=== PATIENT | male | born 1955 | race Two or more races ===

== ENCOUNTER 2020-08-21 19:55 | Inpatient (IN) | payer MEDICARE, OTHER ==
[~2020-08-21] VITALS: Ht 172.7 cm; Wt 95.7 kg
[2020-08-21] MEDS ORDERED: ACETAMINOPHEN ES 500 MG TABLET ONE (20:08)
--- NOTE | 2020-08-21 20:12 | NUR ---
NURSING PROGRAM DIRECTOR AT BEDSIDE FOR BLOOD DRAW.
[2020-08-21 20:23] LABS: BASOPHILS # (AUTO) 0.1 K/uL (0.0-0.2); BASOPHILS % (AUTO) 0.8 % (0.0-2.0); EOSINOPHILS % (AUTO) 3.2 % (0.0-6.0); HEMATOCRIT 26 % (39-51); HEMOGLOBIN 7.8 g/dL (13.5-17.5); LYMPHOCYTES # (AUTO) 1.5 K/uL (0.8-4.8); LYMPHOCYTES % (AUTO) 24.7 % (20.0-44.0); MEAN CORPUSCULAR HGB CONC 31 g/dl (31.0-36.0); MEAN CORPUSCULAR VOLUME 64 fL (80-96); MONOCYTES # (AUTO) 0.5 K/uL (0.1-1.30); MONOCYTES % (AUTO) 8.3 % (2.0-12.0); NEUTROPHILS # (AUTO) 3.8 K/uL (1.8-8.9); PLATELET COUNT (AUTO) 193 K/uL (150-450); RED BLOOD CELL COUNT(AUTO) 4.02 MIL/uL (4.5-6.0); WHITE BLOOD COUNT (AUTO) 6.1 K/uL (4.3-11.0)
[2020-08-21] MEDS ORDERED: ACETAMINOPHEN ES 500 MG TABLET PO ONE (20:30)
[2020-08-21] MEDS ORDERED: IV NS 0.9% 1,000 ML BAG IV ONE (20:30)
[2020-08-21 20:34] LABS: CALCIUM, SERUM 8.5 mg/dL (8.5-10.1); CREATININE 0.9 mg/dL (0.6-1.3); POTASSIUM 3.1 mmol/L (3.5-5.1)
--- NOTE | 2020-08-21 20:39 | NUR ---
BIBRA C/O LEFT SIDED HEADACHE SINCE 1x HR ASSOCIATE PROFESSOR OF MEDIA ARTS. DENIES VISION CHANGES. PT AAOX4, VSS. RR EVEN & UNLABORED. DENIES CP, SOB, DIZZINESS, N/V, WEAKNESS AT THIS TIME. PT SEEN & EVAL'D BY DR. EISENBERG. WILL CONT TO MONITOR.
[2020-08-21 20:40] LABS: ALBUMIN 3.5 g/dL (3.4-5.0); BILIRUBIN,DIRECT 0.1 mg/dL (0.0-0.2); BILIRUBIN,TOTAL 0.4 mg/dL (0.2-1.0); TOTAL PROTEIN, SERUM 7.1 g/dL (6.4-8.2)
[2020-08-21 20:55] LABS: EOSINOPHILS % (MANUAL) 9 % (0-4); LYMPHOCYTES % (MANUAL) 30 % (16-48); MONOCYTES % (MANUAL) 9 % (0-11.0); NEUTROPHILS % (MANUAL) 52 (42-76)
[2020-08-21] MEDS ORDERED: IOHEXOL-300 100 ML VIAL IV ONE (20:55)
[2020-08-21] MEDS ORDERED: CT SWABBABLE VALVE TRANS SET 1 EA INFUS.SET MC ONE (20:55)
[2020-08-21] MEDS ORDERED: IV NS 0.9% 250 ML IV ONE (20:55)
[2020-08-21 21:12] LABS: OCCULT BLOOD STOOL POSITIVE (NEGATIVE)
[2020-08-21] MEDS ORDERED: PANTOPRAZOLE 80 MG in IV NS 0.9% 100 ML IV ONE (21:30)
[2020-08-21] MEDS ORDERED: PANTOPRAZOLE 80 MG in IV NS 0.9% 500 ML IV ONE (21:30)
[2020-08-21] MEDS ORDERED: PANTOPRAZOLE 40 MG VIAL ONE (21:35)
--- NOTE | 2020-08-21 21:47 | NUR ---
MEDICATED PER ERMD ORDER, PT CEFERINO WELL.
--- NOTE | 2020-08-21 22:00 | NUR ---
RECIEVED [facility] [phone]
--- NOTE | 2020-08-21 22:18 | NUR ---
REPORT GIVEN TO CANDY STARR FOR VINNY.
[2020-08-21] MEDS ORDERED: ONDANSETRON HCL/PF 4 MG/2 ML VIAL IVP PRN (22:30)
[2020-08-21] MEDS ORDERED: Z GUARD REMEDY 2 OZ OINT TP PRN (22:30)
[2020-08-21] MEDS ORDERED: MAGNESIUM HYDROXIDE 30 ML UDC PO PRN (22:30)
[2020-08-21] MEDS ORDERED: MAG HYDROX/AL HYDROX/SIMETH 30 ML UDC PO PRN (22:30)
[2020-08-21] MEDS ORDERED: PANTOPRAZOLE 80 MG in IV NS 0.9% 500 ML IV PRN (22:30)
[2020-08-21] MEDS ORDERED: ACETAMINOPHEN 325 MG TABLET PO PRN (22:30)
[2020-08-21] MEDS ORDERED: ZOLPIDEM TARTRATE 5 MG TABLET PO PRN (22:30)
[2020-08-21 22:35] VITALS: BP 130/66
[2020-08-21] MEDS ORDERED: CHOLESTEROL (23:19)
[2020-08-21] MEDS ORDERED: METO25TA6 PO (23:19)
[2020-08-22] VITALS (10 sets, daily range): BP systolic 101–132; BP diastolic 60–76
[2020-08-22] MEDS: IV NS 0.9% 1,000 ML IV PRN ×2 (02:21→18:23)
[2020-08-22 05:11] LABS: BASOPHILS % (AUTO) 0.4 % (0.0-2.0); EOSINOPHILS % (AUTO) 4.4 % (0.0-6.0); HEMATOCRIT 23 % (39-51); LYMPHOCYTES # (AUTO) 1.4 K/uL (0.8-4.8); LYMPHOCYTES % (AUTO) 29.3 % (20.0-44.0); MEAN CORPUSCULAR HGB CONC 30 g/dl (31.0-36.0); MEAN CORPUSCULAR VOLUME 64 fL (80-96); MONOCYTES # (AUTO) 0.4 K/uL (0.1-1.30); MONOCYTES % (AUTO) 8.4 % (2.0-12.0); NEUTROPHILS # (AUTO) 2.7 K/uL (1.8-8.9); NEUTROPHILS % (AUTO) 57.5 % (43.0-81.0); PLATELET COUNT (AUTO) 166 K/uL (150-450); RED BLOOD CELL COUNT(AUTO) 3.56 MIL/uL (4.5-6.0); WHITE BLOOD COUNT (AUTO) 4.8 K/uL (4.3-11.0)
[2020-08-22 05:19] LABS: HEMOGLOBIN 6.9 g/dL (13.5-17.5)
[2020-08-22 05:25] LABS: CREATININE 0.9 mg/dL (0.6-1.3); MAGNESIUM 2.1 mg/dL (1.8-2.4); PHOSPHORUS 3.2 mg/dL (2.5-4.9); POTASSIUM 2.9 mmol/L (3.5-5.1)
[2020-08-22 05:58] LABS: BAND % (MANUAL) 1 % (0.0-5.0); EOSINOPHILS % (MANUAL) 6 % (0-4); LYMPHOCYTES % (MANUAL) 23 % (16-48); MONOCYTES % (MANUAL) 14 % (0-11.0); NEUTROPHILS % (MANUAL) 56 (42-76)
--- NOTE | 2020-08-22 06:22 | NUR ---
BISQUE FINISHER NOTES AWAKE & RESPONSIVE. NOT IN ANY DISTRESS. NO SOB NOTED. DENIES ANY PAIN OR DISCOMFORT AT THIS TIME. ON TELE SR @ 76 WITH OCC PACS/PVCS WITH IVF INFUSING WELL. MONITORED ACCORDINGLY. CALL LIGHT WITHIN REACH. BED IN LOWEST POSITION. SR UP X 2 FOR SAFETY. WILL ENDORSE TO NEXT SHIFT.
[2020-08-22] MEDS ORDERED: ROSU20TA32 PO (07:36)
[2020-08-22] MEDS ORDERED: CHOL200010 PO (07:36)
[2020-08-22] MEDS ORDERED: LORA10TA7 PO (07:36)
[2020-08-22] MEDS ORDERED: BUME0.5T5 PO (07:36)
[2020-08-22] MEDS ORDERED: PANT40TA49 PO (07:36)
[2020-08-22] MEDS ORDERED: ASPI-1420 PO (07:36)
--- NOTE | 2020-08-22 07:53 | NUR ---
DEBONING TEAM LEADER OPENING NOTE PATIENT IS IN BED RESTING, PATIENT IS IN NO ACUTE DISTRESS, PATIENT IS ON ROOM AIR, SATURATING WELL. PATIENT IS ON TELE MONITOR READING SR WITH PACs. PATIENT HEMOGLOBIN LEVEL IS 6.9, 1 UNIT OF BLOOD ORDERED. SAFETY PRECAUTIONS ARE ON, BED IS LOCKED IN THE LOWEST POSITION WITH SIDE RAILS UP, CALL LIGHT WITHIN REACH, WILL CONTINUE TO MONITOR.
[2020-08-22] MEDS: POTASSIUM CL. PREMIX PERIPHER. 50 ML IV SCH ×6 (08:25→17:39)
[2020-08-22 08:32] LABS: THYROID STIMULATING HORMONE 0.858 uIU/mL (0.358-3.74)
[2020-08-22] MEDS: POTASSIUM CHLORIDE 20 MEQ TAB.PRT.SR PO SCH ×4 (09:00→12:10)
[2020-08-22] MEDS: PANTOPRAZOLE 40 MG VIAL IV SCH ×2 (11:18→22:31)
--- NOTE | 2020-08-22 12:47 | NUR ---
NEURO INTENSIVIST PHYSICIAN NOTE PATIENTS BLOOD TRANSFUSION STARTED, BLOOD PRODUCT VERIFIED BY 2 RNS IMMACULATE CHARGE NURSE AND KAYLYNN Rios PATIENTS VITAL SIGNS ARE WITHIN NORMAL LIMITS. PATIENT IS TOLERATING WELL.
[2020-08-22] MEDS ORDERED: LORATADINE 10 MG TABLET PO PRN (15:00)
--- NOTE | 2020-08-22 18:59 | NUR ---
ASSOCIATE MERCHANDISE PLANNER CLOSING NOTE PATIENT IS IN BED RESTING, PATIENT IS IN NO ACUTE DISTRESS, PATIENT IS ON ROOM AIR, SATURATING WELL. PATIENT IS ON TELE MONITOR READING SR WITH PACs. PATIENT HEMOGLOBIN LEVEL IS 6.9, 1 UNIT OF BLOOD ORDERED. TRANSFUSED 1 UNIT OF BLOOD DURING THE SHIFT. PATIENT TOLERATED WELL. NO ADVERSE REACTION. SAFETY PRECAUTIONS ARE ON, BED IS LOCKED IN THE LOWEST POSITION WITH SIDE RAILS UP, CALL LIGHT WITHIN REACH, ENDORSE PATIENT TO PETROLEUM SAMPLER NURSE FOR VINNY.
--- NOTE | 2020-08-22 19:40 | NUR ---
TELERN FULLY AWAKE, FAMILY AT BEDSIDE. PROVIDED PRIVACY, TO CONTINUE.
--- NOTE | 2020-08-22 20:00 | NUR ---
TELERN BLOOD DRAWN, PATIENT STATES HAVE NOT SEEN GI SPECIALIST. STATED HE WAS TOLD EARLIER BY PMD MIGHT HAVE PROCEDURE COLONOSCOPY/EGD TOMORROW. WILL KEEP PATIENT NPO THOUGH NO ORDERS YET FOR PROCEDURE. REMAINS COOPERATIVE, ALERT/ORIENTEDX4, VERY PLEASANT. KEPT COMFORTABLE TO CONTINUE.
[2020-08-22 20:16] LABS: BASOPHILS % (AUTO) 0.5 % (0.0-2.0); EOSINOPHILS % (AUTO) 3.2 % (0.0-6.0); HEMATOCRIT 25 % (39-51); HEMOGLOBIN 7.6 g/dL (13.5-17.5); LYMPHOCYTES # (AUTO) 1.3 K/uL (0.8-4.8); LYMPHOCYTES % (AUTO) 24.5 % (20.0-44.0); MEAN CORPUSCULAR HGB CONC 30 g/dl (31.0-36.0); MEAN CORPUSCULAR VOLUME 67 fL (80-96); MONOCYTES # (AUTO) 0.5 K/uL (0.1-1.30); MONOCYTES % (AUTO) 9.6 % (2.0-12.0); NEUTROPHILS # (AUTO) 3.4 K/uL (1.8-8.9); NEUTROPHILS % (AUTO) 62.2 % (43.0-81.0); PLATELET COUNT (AUTO) 167 K/uL (150-450); RED BLOOD CELL COUNT(AUTO) 3.76 MIL/uL (4.5-6.0); WHITE BLOOD COUNT (AUTO) 5.4 K/uL (4.3-11.0)
[2020-08-22 20:45] LABS: LYMPHOCYTES % (MANUAL) 21 % (16-48); MONOCYTES % (MANUAL) 10 % (0-11.0); NEUTROPHILS % (MANUAL) 68 (42-76)
[2020-08-22 20:46] LABS: EOSINOPHILS % (MANUAL) 1 % (0-4)
[2020-08-23] VITALS (9 sets, daily range): BP systolic 119–138; BP diastolic 68–78
--- NOTE | 2020-08-23 02:25 | NUR ---
TELERN WAS SOB ON MINIMAL EXERTION. 02 2L VIA NC MAINTAINED. SR ON THE MONITOR. PREFERS TO SEAT THE SIDE OF HIS BED. ENCOURAGED TO SPACE ACTIVITY. PRESENT IVF CONTINUED, CLOSELY WATCHED.
[2020-08-23] MEDS: IV NS 0.9% 1,000 ML IV PRN ×2 (04:38→17:13)
--- NOTE | 2020-08-23 06:42 | NUR ---
TELERN SLEEPING COMFORTABLY ON BED,
[2020-08-23 07:08] LABS: BASOPHILS % (AUTO) 0.5 % (0.0-2.0); HEMATOCRIT 24 % (39-51); HEMOGLOBIN 7.3 g/dL (13.5-17.5); LYMPHOCYTES # (AUTO) 1.1 K/uL (0.8-4.8); LYMPHOCYTES % (AUTO) 20.4 % (20.0-44.0); MEAN CORPUSCULAR HGB CONC 30 g/dl (31.0-36.0); MEAN CORPUSCULAR VOLUME 66 fL (80-96); MONOCYTES # (AUTO) 0.4 K/uL (0.1-1.30); MONOCYTES % (AUTO) 7.6 % (2.0-12.0); NEUTROPHILS # (AUTO) 3.5 K/uL (1.8-8.9); NEUTROPHILS % (AUTO) 67.5 % (43.0-81.0); PLATELET COUNT (AUTO) 163 K/uL (150-450); RED BLOOD CELL COUNT(AUTO) 3.65 MIL/uL (4.5-6.0); WHITE BLOOD COUNT (AUTO) 5.2 K/uL (4.3-11.0)
--- NOTE | 2020-08-23 07:30 | NUR ---
MACHINE OPERATOR FARMWORKER NOTES PT AWAKE, SITTING IN BED, ALERT AND ORIENTED, NO COMPLAINT OF PAIN OR ANY DISCOMFORT AT THIS TIME, BREATHING PATTERN NORMAL, CALL LIGHT WITHIN REACH, KEPT COMFORTABLE.
[2020-08-23 08:11] LABS: ALBUMIN 3.2 g/dL (3.4-5.0); BILIRUBIN,TOTAL 0.6 mg/dL (0.2-1.0); CALCIUM, SERUM 8.3 mg/dL (8.5-10.1); CREATININE 0.8 mg/dL (0.6-1.3); MAGNESIUM 2.1 mg/dL (1.8-2.4); PHOSPHORUS 1.9 mg/dL (2.5-4.9); POTASSIUM 3.2 mmol/L (3.5-5.1); TOTAL PROTEIN, SERUM 6.6 g/dL (6.4-8.2)
[2020-08-23] MEDS: METOPROLOL TARTRATE 25 MG TABLET PO SCH (09:00)
[2020-08-23] MEDS: PANTOPRAZOLE 40 MG VIAL IV SCH ×2 (09:30→22:16)
[2020-08-23] MEDS ORDERED: POTASSIUM CL. PREMIX PERIPHER. 50 ML IV SCH (09:30)
[2020-08-23] MEDS ORDERED: K PHOS NEUTRAL 250 MG TABLET PO ONE (12:00)
[2020-08-23] MEDS: POTASSIUM CHLORIDE 10 MEQ TABLET.SA PO SCH ×4 (12:21→15:40)
[2020-08-23] MEDS: CHOLECALCIFEROL 1,000 UNIT TABLET (VIT D3) PO SCH (12:21)
[2020-08-23] MEDS: ATORVASTATIN 40 MG TABLET PO SCH ×2 (12:22→22:16)
[2020-08-23] MEDS: BUMETANIDE (1 MG) 1 MG TABLET PO SCH (12:22)
--- NOTE | 2020-08-23 12:34 | NUR ---
CRAB BACKER NOTES PT AWAKE, SITTING IN BED, WITH COMPLAINT OF SOB ESPECIALLY WHEN LYING DOWN, PT'S O2 SAT IS 99% ON ROOM AIR, REFUSING TO WEAR HIS NASAL CANULA, DR. PETERS AWARE, PT CURRENTLY RECEIVING 1 UNIT PRBC, TOLERATING WELL, VITALS STABLE.
[2020-08-23] MEDS ORDERED: PEG 3350/NA SULF,BICARB,CL/KCL 4,000 ML BOTTLE PO ONE (18:00)
--- NOTE | 2020-08-23 18:35 | NUR ---
BUTTER FAT TESTER NOTES PT AWAKE, SITTING IN BED, ORDER RECEIVED FROM DR. PETERS TO OBTAIN CONSENT FOR EGD/COLONOSCOPY, PT SIGNED CONSENT WITH HELP FROM FAMILY OVER THE PHONE, PT STARTED ON GOLYTELY, AMBULATES WITH STEADY GAIT.
--- NOTE | 2020-08-23 19:30 | NUR ---
SLIVER FORMER OPENING NOTES: RECEIVED PATIENT IN BED, AWAKE, A/O X4. NO S/S OF DISTRESS NOTED. CALL LIGHT WITHIN REACH. BED IN LOWEST AND LOCKED POSITION. REMINDED PT NPO POST MN,PT VERBALIZED UNDERSTANDING. INSTRUCTED PT NOT TO FLUSH TOILET EVERY AFTER BM, VERBALIZED UNDERSTANDING. PATENT SPEAKS EMIRATI ABLE TO UNDERSTANDING LITTLE TELUGU, IF EVER HE DID NOT UNDERSTAND ANY WORDS HE CALL HIS FAMILY MEMBER FOR TRANSLATION. NO COMPLAIN OF PAIN AT THIS TIME.
--- NOTE | 2020-08-23 20:04 | NUR ---
HAD BM, YELLOWISH-BROWNISH COLOR STOOL, LIQUIDY WITH PARTICLES. ENCOURAGED PATIENT TO CONTINUE DRINKING THE GOLYTELY TOLERATED,PT VERBALIZED UNDERSTANDING. AMBULATORY WITH STEADY GAIT.
--- NOTE | 2020-08-23 20:36 | NUR ---
HAD BM AGAIN, BLOODY WATERY STOOL WITH SOME PARTICLES.
--- NOTE | 2020-08-23 23:34 | NUR ---
HAD BM AGAIN, BROWNISH WATERY COLORED STOOL WITH PARTICLES.
[2020-08-24] VITALS (10 sets, daily range): BP systolic 121–142; BP diastolic 56–84
--- NOTE | 2020-08-24 00:10 | NUR ---
HAD BM AGAIN, YELLOWISH COLOR WITH NO PARTICLES. NPO.
[2020-08-24] MEDS: IV NS 0.9% 1,000 ML IV PRN (04:11)
[2020-08-24 07:02] LABS: CALCIUM, SERUM 7.9 mg/dL (8.5-10.1); CREATININE 0.9 mg/dL (0.6-1.3); PHOSPHORUS 2.6 mg/dL (2.5-4.9)
--- NOTE | 2020-08-24 07:30 | NUR ---
GOLF SALES MANAGER NOTES PT AWAKE, WALKING ALONG THE ROOM, NO COMPLAINT AT THIS TIME, RESPIRATIONS NORMAL, TOLERATES ROOM AIR, HAD BM, WATERY AND YELLOWISH, KEPT NPO.
[2020-08-24 08:29] LABS: IRON, SERUM 17 ug/dl (50-175); TOTAL IRON BINDING CAPACITY 311 ug/dl (250-450)
[2020-08-24] MEDS: BUMETANIDE (1 MG) 1 MG TABLET PO SCH (09:00)
[2020-08-24] MEDS: METOPROLOL TARTRATE 25 MG TABLET PO SCH (09:00)
[2020-08-24] MEDS: CHOLECALCIFEROL 1,000 UNIT TABLET (VIT D3) PO SCH (09:00)
[2020-08-24 09:02] LABS: BASOPHILS % (AUTO) 0.5 % (0.0-2.0); EOSINOPHILS % (AUTO) 3.5 % (0.0-6.0); HEMATOCRIT 25 % (39-51); HEMOGLOBIN 7.8 g/dL (13.5-17.5); LYMPHOCYTES # (AUTO) 0.9 K/uL (0.8-4.8); LYMPHOCYTES % (AUTO) 18.6 % (20.0-44.0); MEAN CORPUSCULAR HGB CONC 31 g/dl (31.0-36.0); MEAN CORPUSCULAR VOLUME 67 fL (80-96); MONOCYTES # (AUTO) 0.3 K/uL (0.1-1.30); MONOCYTES % (AUTO) 6.4 % (2.0-12.0); NEUTROPHILS # (AUTO) 3.6 K/uL (1.8-8.9); PLATELET COUNT (AUTO) 154 K/uL (150-450); RED BLOOD CELL COUNT(AUTO) 3.76 MIL/uL (4.5-6.0)
[2020-08-24] MEDS: PANTOPRAZOLE 40 MG VIAL IV SCH ×2 (09:05→22:22)
[2020-08-24] MEDS: POTASSIUM CL. PREMIX PERIPHER. 50 ML IV SCH ×4 (10:03→19:50)
[2020-08-24 11:13] LABS: FERRITIN 15 ng/mL (8-388)
[2020-08-24] MEDS ORDERED: FUROSEMIDE 20 MG/2 ML VIAL IV ONE ×2 (13:00→19:30)
--- NOTE | 2020-08-24 19:00 | NUR ---
CORPORATE HEALTH CONSULTANT NOTES PT AWAKE, ALERT AND ORIENTED, NO COMPLAINT OF PAIN, NOT IN DISTRESS, COMPLETED 1 UNIT OF BLOOD TRANSFUSION, TOLERATED WELL, SCHEDULED FOR EGD/COLONOSCOPY AT 5AM, PT AND FAMILY AWARE, LASIX REORDERED, UNABLE TO GIVE ON TIME DUE TO ONGOING BLOOD TRANSFUSION, SEEN BY DR. PETERS, NEEDS ATTENDED.
[2020-08-24] MEDS: ATORVASTATIN 40 MG TABLET PO SCH (22:21)
[2020-08-25] VITALS (8 sets, daily range): BP systolic 134–141; BP diastolic 76–82
[2020-08-25] MEDS ORDERED: METHYLENE BLUE 10 ML VIAL ONE (05:38)
--- NOTE | 2020-08-25 06:19 | NUR ---
PATIENT IS BEING PICKED UP BY SURGERY TEAM AT 0500 FOR COLONOSCOPY.
--- NOTE | 2020-08-25 07:07 | NUR ---
SOCIAL SERVICES ASSISTANT OPENING NOTES RECEIVED REPORT PT IS IN SURGERY FOR EGD/COLONOSCOPY.
[2020-08-25] MEDS ORDERED: FENTANYL PF 100MCG/2ML AMPUL ONE (07:26)
--- NOTE | 2020-08-25 08:04 | NUR ---
RN NOTES PT RETURNED TO UNIT AT 0753 FROM SURGERY S/P COLONOSCOPY BY DR LEMUS. PT IS AWAKE, A/O X4. ABLE TO MAKE NEEDS KNOWN AND STATED THAT HIS PAIN IS BEARABLE AT THIS TIME. V/S TAKEN BP 138/80, P 82, R 18, T 97.8F AND SP02 97% HAYDEE ROOM AIR. PT RESUMED ON IVF OF NS @125ML/HR VIA IV ACCESS ON RAC 20G. DR URRUTIA CAME TO SEE PT WITH ORDER TO START PT ON CLEAR LIQUIDS DIET AND ADVANCE TOLERATED. TELEMONITOR SHOWS NSR WITH HR ON THE 70'S, NO C/O CARDIAC DISTRESS VOICED AT THIS TIME. SAFETY MEASURES MAINTAINED: BED IN LOWEST LOCKED POSITION W/ SR UP X2. CALL LIGHT W/IN EASY REACH OF PT. WILL CONTINUE TO MONITOR PT ACCORDINGLY. .
--- NOTE | 2020-08-25 08:57 | NUR ---
RN NOTES PATIENT PICKED-UP BY JULIA VIA WHEELCHAIR FOR CT OF ABDOMEN W/O CONTRAST.
[2020-08-25] MEDS: CHOLECALCIFEROL 1,000 UNIT TABLET (VIT D3) PO SCH (09:12)
[2020-08-25] MEDS: PANTOPRAZOLE 40 MG VIAL IV SCH ×2 (09:15→21:22)
[2020-08-25] MEDS: METOPROLOL TARTRATE 25 MG TABLET PO SCH (09:15)
[2020-08-25] MEDS: BUMETANIDE (1 MG) 1 MG TABLET PO SCH (09:15)
[2020-08-25] MEDS: POTASSIUM CL. PREMIX PERIPHER. 50 ML IV SCH ×6 (09:16→16:06)
[2020-08-25] MEDS: HYDROCODONE/APAP 5/325MG TABLET PO PRN ×2 (09:18→21:51)
[2020-08-25 09:20] LABS: BASOPHILS % (AUTO) 0.3 % (0.0-2.0); EOSINOPHILS % (AUTO) 1.8 % (0.0-6.0); HEMATOCRIT 31 % (39-51); HEMOGLOBIN 9.5 g/dL (13.5-17.5); LYMPHOCYTES # (AUTO) 0.8 K/uL (0.8-4.8); LYMPHOCYTES % (AUTO) 14.3 % (20.0-44.0); MEAN CORPUSCULAR HGB CONC 31 g/dl (31.0-36.0); MEAN CORPUSCULAR VOLUME 68 fL (80-96); MONOCYTES # (AUTO) 0.4 K/uL (0.1-1.30); MONOCYTES % (AUTO) 6.6 % (2.0-12.0); NEUTROPHILS # (AUTO) 4.6 K/uL (1.8-8.9); PLATELET COUNT (AUTO) 164 K/uL (150-450); RED BLOOD CELL COUNT(AUTO) 4.56 MIL/uL (4.5-6.0); WHITE BLOOD COUNT (AUTO) 5.9 K/uL (4.3-11.0)
--- NOTE | 2020-08-25 09:21 | NUR ---
RN NOTES PT C/O ACHING ABDOMINAL PAIN, 5/10 SCALE. PRN NORCO 5/325 MG PO GIVEN AT 0918. WILL CONTINUE TO MONITOR AND REASSESS PT.
[2020-08-25 09:23] LABS: CALCIUM, SERUM 8.3 mg/dL (8.5-10.1); CREATININE 0.9 mg/dL (0.6-1.3); PHOSPHORUS 2.7 mg/dL (2.5-4.9); POTASSIUM 3.3 mmol/L (3.5-5.1)
--- NOTE | 2020-08-25 10:43 | NUR ---
RN NOTES PT SEEN BY DR SILVA WITH ORDER TO DO CT CHEST W/ CONTRAST. CONSENT SIGNED BY PT.
--- NOTE | 2020-08-25 10:44 | NUR ---
RN NOTES PT SEEN BY DR KOCH WITH ORDER TO DO RIGHT HEMICOLECTOMY TOMORROW. PROCEDURE EXPLAINED TO PT AND TO DAUGHTER VIA TELEPHONE, BOTH VERBALIZED UNDERSTANDING. WILL OBTAIN CONSENTS.
--- NOTE | 2020-08-25 10:45 | NUR ---
RN notes Pt noted with hgb of 9.5. this morning, informed Dr Riojas if to continue to give 1 prbc and he said " hold". Will continue to monitor. .
[2020-08-25] MEDS: NEOMYCIN SULFATE (500MG) 500 MG TABLET PO SCH ×4 (11:16→21:23)
[2020-08-25] MEDS ORDERED: IOHEXOL-300 100 ML VIAL IV ONE (13:32)
[2020-08-25] MEDS ORDERED: IV NS 0.9% 250 ML IV ONE (13:33)
[2020-08-25] MEDS ORDERED: CT SWABBABLE VALVE TRANS SET 1 EA INFUS.SET MC ONE (13:33)
[2020-08-25] MEDS ORDERED: ANESTHESIA TRAY IN PYXIS 1 EA TRAY MC ONE (13:38)
[2020-08-25] MEDS: SOD FERRIC GLUC 125 MG in IV NS 0.9% 100 ML IV SCH (15:36)
--- NOTE | 2020-08-25 18:57 | NUR ---
TEL RN CLOSING RN NOTES PT IN BED AWAKE AT THIS TIME WITH FAMILY AT BEDSIDE. A/O X4. ABLE TO MAKE NEEDS KNOWN AND STATED THAT HIS PAIN IS BEARABLE AT THIS TIME. ON ROOM AIR, TOLERATING WELL WITH NO SOB NOTED. IVF OF NS @125ML/HR VIA IV ACCESS ON LAC 20G INFUSING WELL, NO S/S OF INFILTRATION NOTED. TELEMONITOR SHOWS NSR WITH HR ON THE 70'S, NO C/O CARDIAC DISTRESS. PT FOR RIGHT HEMICOLECTOMY TOMORROW, ALL CONSENTS SIGNED, NPO TO BE ENFORCED POST MIDNIGHT. ALL NEEDS NAD CARE ATTENDED WELL. SAFETY MEASURES MAINTAINED: BED IN LOWEST LOCKED POSITION W/ SR UP X2. CALL LIGHT W/IN EASY REACH OF PT. WILL ENDORSE VINNY TO BLAST SETTER NURSE. .
[2020-08-25] MEDS: IV NS 0.9% 1,000 ML IV PRN (19:13)
[2020-08-25] MEDS: ATORVASTATIN 40 MG TABLET PO SCH (21:22)
[2020-08-26 00:46] VITALS: BP 129/78
[2020-08-26 04:35] VITALS: BP 131/76
--- NOTE | 2020-08-26 06:28 | NUR ---
SUPERVISOR WATERWORKS NOTES AWAKE & RESPONSIVE. NOT IN ANY DISTRESS. NO SOB NOTED. DENIES ANY PAIN OR DISCOMFORT AT THIS TIME. ON TELE SR @ 75 WITH IVF INFUSING WELL. MONITORED ACCORDINGLY. CALL LIGHT WITHIN REACH. BED IN LOWEST POSITION. SR UP X2 FOR SAFETY. WILL ENDORSE TO NEXT SHIFT.
[2020-08-26 06:39] LABS: BASOPHILS % (AUTO) 0.4 % (0.0-2.0); EOSINOPHILS % (AUTO) 2.7 % (0.0-6.0); HEMATOCRIT 28 % (39-51); HEMOGLOBIN 8.8 g/dL (13.5-17.5); LYMPHOCYTES # (AUTO) 0.8 K/uL (0.8-4.8); LYMPHOCYTES % (AUTO) 15.2 % (20.0-44.0); MEAN CORPUSCULAR HGB CONC 31 g/dl (31.0-36.0); MEAN CORPUSCULAR VOLUME 67 fL (80-96); MONOCYTES # (AUTO) 0.4 K/uL (0.1-1.30); MONOCYTES % (AUTO) 6.8 % (2.0-12.0); NEUTROPHILS # (AUTO) 4.1 K/uL (1.8-8.9); NEUTROPHILS % (AUTO) 74.9 % (43.0-81.0); PLATELET COUNT (AUTO) 168 K/uL (150-450); RED BLOOD CELL COUNT(AUTO) 4.24 MIL/uL (4.5-6.0); WHITE BLOOD COUNT (AUTO) 5.4 K/uL (4.3-11.0)
[2020-08-26 06:59] LABS: CALCIUM, SERUM 8.2 mg/dL (8.5-10.1); CREATININE 0.9 mg/dL (0.6-1.3); POTASSIUM 3.6 mmol/L (3.5-5.1)
[2020-08-26] MEDS: NEOMYCIN SULFATE (500MG) 500 MG TABLET PO SCH (07:00)
--- NOTE | 2020-08-26 07:15 | NUR ---
CONTRACTOR GENERAL BUILDING NOTES PATIENT ALERT AND ORIENTED X4 WITH NO SIGNS OF DISTRESS. PATIENT WITH EVEN AND UNLABORED BREATHING WITH NO SIGNS OF RESPIRATORY DISTRESS ON ROOM AIR. PATIENT WITH LEFT AC G20 WITH IVF OF NS RUNNING AT 125ML/HR. PATIETN KEPT ON NPO SINCE MIDNIGHT FOR PENDING PROCEDURE UNDER DR. KOCH. PATIENT PICKED UP BY OR NURSES FOR PROCEDURE. ALL CONSENTS SIGNED AND ATTACHED TO CHART. PATIENT ENDORSED ACCORDINGLY. TO OR.
[2020-08-26] MEDS ORDERED: HYDROMORPHONE INJ 2 MG/ML DISP.SYRIN ONE (07:21)
[2020-08-26] MEDS ORDERED: FENTANYL PF 100MCG/2ML AMPUL ONE ×2 (07:21→09:50)
[2020-08-26] MEDS ORDERED: METRONIDAZOLE 500MG/ NS 100ML 100 ML IV ONE (08:12)
[2020-08-26] MEDS: CHOLECALCIFEROL 1,000 UNIT TABLET (VIT D3) PO SCH (09:00)
[2020-08-26] MEDS: BUMETANIDE (1 MG) 1 MG TABLET PO SCH (09:00)
[2020-08-26] MEDS: PANTOPRAZOLE 40 MG VIAL IV SCH ×2 (09:00→21:27)
[2020-08-26] MEDS: METOPROLOL TARTRATE 25 MG TABLET PO SCH (09:00)
--- NOTE | 2020-08-26 10:20 | NUR ---
INSPECTOR AND CLIPPER NOTES PATIENT RECEIVED FROM OR S/P EXPLOR LAP AND RIGHT HEMICOLECTOMY. PATIENT ALERT AND ORIENTED X4 WITH NO SIGNS OF DISTRESS. PATIENT WITH EVEN AND UNLABORED BREATHING WITH NO SIGNS OF RESPIRATORY DISTRESS ON OXYGEN FOR COMFORT. PATIENT WITH LEFT AC G20 AND RIGHT WRIST G20 WITH IVF OF NS RUNNING AT 125ML/HR. WITH FOLE CATHETER TO URINE BAG. WITH ABDOMINAL DRESSING DRY AND INTACT. WILL AWAIT ORDERS. COMFORT MEASURES PROVIDED. WILL CONTINUE TO MONITOR PATIENT.
[2020-08-26] MEDS: METOCLOPRAMIDE HCL 10 MG/2 ML VIAL IV SCH ×2 (11:31→17:57)
[2020-08-26 12:00] VITALS: BP 127/61
[2020-08-26] MEDS: HYDROCODONE/APAP 5/325MG TABLET PO PRN (12:29)
[2020-08-26] MEDS: IV D5/0.45 NACL W/20 MEQ KCL 1L IV PRN (12:52)
[2020-08-26] MEDS: SOD FERRIC GLUC 125 MG in IV NS 0.9% 100 ML IV SCH (14:25)
[2020-08-26] MEDS ORDERED: BUPIVACAINE 0.5 % PF 150 MG/30 ML VIAL ONE (14:33)
[2020-08-26 16:00] VITALS: BP 133/74
[2020-08-26] MEDS: METRONIDAZOLE 500MG/ NS 100ML 500 MG in PREMIX 1 EA IV SCH ×2 (17:06→23:06)
[2020-08-26] MEDS: ANCEF 1 GM/50 ML D5W IV SCH ×2 (17:06→23:05)
--- NOTE | 2020-08-26 18:50 | NUR ---
END POLISHER CLOSING NOTES PATIENT ALERT AND ORIENTED X4 WITH NO SIGNS OF DISTRESS. PATIENT WITH EVEN AND UNLABORED BREATHING WITH NO SIGNS OF RESPIRATORY DISTRESS ON OXYGEN FOR COMFORT SATURATING AT 99%. PATIENT WITH LEFT AC G20 AND RIGHT WRIST G20 WITH IVF OF D5 1/2 NS WITH 20MEQ KCL RUNNING AT 100ML. WITH SIERRA CATHETER TO URINE BAG. WITH ABDOMINAL DRESSING DRY AND INTACT. PATIENT WITH FAMILY AT BEDSIDE. SAFETY ENSURED WITH BED AT LOWERT POSITION AND LOCKED, SIDERAILS RAISED FOR SAFETY. CALL LIGHT AND BEDSIDE TABLE WITHIN REACH AT ALL TIMES. NOT IN DISTRESS. WILL ENDORSE TO NEXT SHIFT FOR CONTINUITY OF CARE.
[2020-08-26] MEDS: MORPHINE SULFATE INJ 4 MG/ML DISP.SYRIN IV PRN (19:47)
[2020-08-26 20:00] VITALS: BP 147/85
--- NOTE | 2020-08-26 20:03 | NUR ---
HEALTH CARE MARKETING SPECIALIST OPENING NOTE PATIENT A/OX4; [place]BAN[place] SPEAKING. TOLERATING O2 2LPM VIA N/C WELL WITH NO SOB. EXTERNAL PANAMA HAT HYDRAULIC PRESS OPERATOR READS NSR AT 93. PATIENT DENIES PAIN AT THIS TIME. R WRIST #20G S/L; PATENT AND INTACT. LAC #20G D5 1/2NS + KCL 20MEQ @ 100ML/HR. ABDOMINAL DRESSING KEPT C/D/I; NO BLEEDING NOTED. F/C DRAINING CLEAR YELLOW URINE; PATENT AND INTACT. SAFETY MEASURES IN PLACE: BED TO LOWEST LOCKED POSITION, SIDE RAILS UPX2, CALL LIGHT WITHIN EASY REACH, BED ALARM ON. PATIENT IN STABLE CONDITION; WILL CONTINUE PLAN OF CARE.
--- NOTE | 2020-08-26 20:28 | NUR ---
SAND SYSTEM OPERATOR NOTE - INCENTIVE SPIROMETER EDUCATED PATIENT HOW TO USE AND ENCOURAGED PATIENT TO USE INCENTIVE SPIROMETER TO REACH GOAL. PATIENT REACHED 500ML AT THIS TIME
[2020-08-26] MEDS: ATORVASTATIN 40 MG TABLET PO SCH (21:27)
[2020-08-27] VITALS: BP 119/64
[2020-08-27] MEDS: METOCLOPRAMIDE HCL 10 MG/2 ML VIAL IV SCH ×5 (00:52→23:50)
[2020-08-27 04:00] VITALS: BP 138/74
[2020-08-27] MEDS: IV D5/0.45 NACL W/20 MEQ KCL 1L IV PRN ×2 (05:22→20:27)
--- NOTE | 2020-08-27 06:27 | NUR ---
COMMERCIAL PHOTOGRAPHER OPENING NOTE PATIENT A/OX4; ERITREAN SPEAKING. TOLERATING O2 2LPM VIA N/C WELL WITH NO SOB. EXTERNAL COMMUNITY LIAISON OFFICER READS SR WITH PVC AND PAC AT 80. PATIENT DENIES PAIN AT THIS TIME. LAC #20G S/L; PATENT AND INTACT. R WRIST #20G D5 1/2NS + KCL 20MEQ @ 100ML/HR. ABDOMINAL DRESSING KEPT C/D/I; NO BLEEDING NOTED. F/C DRAINING TEA COLORED URINE; PATENT AND INTACT. CHARGE NURSE AWARE OF URINE COLOR. SAFETY MEASURES IN PLACE: BED TO LOWEST LOCKED POSITION, SIDE RAILS UPX2, CALL LIGHT WITHIN EASY REACH, BED ALARM ON. PATIENT IN STABLE CONDITION; WILL ENDORSE PLAN OF CARE.
[2020-08-27 07:04] LABS: BASOPHILS % (AUTO) 0.1 % (0.0-2.0); EOSINOPHILS % (AUTO) 0.1 % (0.0-6.0); HEMATOCRIT 30 % (39-51); HEMOGLOBIN 9.5 g/dL (13.5-17.5); LYMPHOCYTES # (AUTO) 0.9 K/uL (0.8-4.8); LYMPHOCYTES % (AUTO) 10.4 % (20.0-44.0); MEAN CORPUSCULAR HGB CONC 32 g/dl (31.0-36.0); MEAN CORPUSCULAR VOLUME 69 fL (80-96); MONOCYTES # (AUTO) 0.7 K/uL (0.1-1.30); MONOCYTES % (AUTO) 7.7 % (2.0-12.0); NEUTROPHILS # (AUTO) 7.1 K/uL (1.8-8.9); NEUTROPHILS % (AUTO) 81.7 % (43.0-81.0); PLATELET COUNT (AUTO) 148 K/uL (150-450); RED BLOOD CELL COUNT(AUTO) 4.34 MIL/uL (4.5-6.0); WHITE BLOOD COUNT (AUTO) 8.7 K/uL (4.3-11.0)
--- NOTE | 2020-08-27 07:20 | NUR ---
MACHINERY MOVER OPENING NOTES PATIENT ALERT AND ORIENTED X 4 WITH NO SIGNS OF DISTRESS. PATIENT WITH EVEN AND UNLABORED BREATHING WITH NO SIGNS OF RESPIRATORY DISTRESS ON ROOM AIR. PATIENT WITH LEFT AC G20, ON SALINE LOCK AND RIGHT WRIST G20 WITH IVF OF D5 1/2 NS WITH 20 MEQ KCL RUNNING AT 100ML/HR. PATIENT WITH SIERRA CATHETER TO URINE BAG, DRAINING WELL. WITH RIGHT ABDOMINAL DRESSING EXTENDING TO THE MIDDLE, DRY AND INTACT. COMFORT MEASURES PROVIDED. SAFETY MEASURES ENSURED, BED LOCKED AND AT LOWEST POSITION, SIDE RAILS RAISED FOR SAFETY. CALL LIGHT AND BEDSIDE TABLE WITHIN REACH AT ALL TIMES. WILL CONTINUE TO MONITOR PATIENT.
[2020-08-27 07:23] LABS: CALCIUM, SERUM 8.1 mg/dL (8.5-10.1); CREATININE 0.8 mg/dL (0.6-1.3); MAGNESIUM 1.9 mg/dL (1.8-2.4); PHOSPHORUS 2.9 mg/dL (2.5-4.9); POTASSIUM 3.7 mmol/L (3.5-5.1)
[2020-08-27 07:48] LABS: LYMPHOCYTES % (MANUAL) 11 % (16-48); METAMYELOCYTES % 3 % (0-0); MONOCYTES % (MANUAL) 2 % (0-11.0); MYELOCYTES % 3 % (0-0); NEUTROPHILS % (MANUAL) 81 (42-76)
[2020-08-27] MEDS: METRONIDAZOLE 500MG/ NS 100ML 500 MG in PREMIX 1 EA IV SCH (07:48)
[2020-08-27 08:00] VITALS: BP 130/70
[2020-08-27] MEDS: PANTOPRAZOLE 40 MG VIAL IV SCH ×2 (08:50→20:47)
[2020-08-27] MEDS: ANCEF 1 GM/50 ML D5W IV SCH (08:50)
[2020-08-27] MEDS: BUMETANIDE (1 MG) 1 MG TABLET PO SCH (08:50)
[2020-08-27] MEDS: CHOLECALCIFEROL 1,000 UNIT TABLET (VIT D3) PO SCH (08:51)
[2020-08-27] MEDS: METOPROLOL TARTRATE 25 MG TABLET PO SCH (08:52)
--- NOTE | 2020-08-27 09:15 | NUR ---
AIDS SOCIAL WORKER NOTE PATIENT SEEN BY DR. URRUTIA WITH NO NEW ORDER. WILL CONTINUE TO MONITOR PATIENT.
[2020-08-27] MEDS: HYDROCODONE/APAP 5/325MG TABLET PO PRN (10:14)
--- NOTE | 2020-08-27 10:15 | NUR ---
LANGUAGE SPECIALIST NOTE PATIENT SEEN BY DR. KOCH WITH ORDER TO REMOVE SIERRA CATHETER. CATHETER REMOVED AND TOLERATED WELL BY THE PATIENT. WILL CONTINUE TO MONITOR PATIENT.
[2020-08-27] MEDS: SOD FERRIC GLUC 125 MG in IV NS 0.9% 100 ML IV SCH (15:59)
[2020-08-27 16:00] VITALS: BP 146/82
[2020-08-27] MEDS: MORPHINE SULFATE INJ 4 MG/ML DISP.SYRIN IV PRN (18:28)
--- NOTE | 2020-08-27 19:05 | NUR ---
TIE WORKER CLOSING NOTES PATIENT ALERT AND ORIENTED X4 WITH NO SIGNS OF DISTRESS. PATIENT WITH EVEN AND UNLABORED BREATHING WITH NO SIGNS OF RESPIRATORY DISTRESS ON ROOM AIR SATURATING AT 98%. PATIENT WITH LEFT AC G20 AND RIGHT WRIST G20 WITH IVF OF D5 1/2 NS WITH 20MEQ KCL RUNNING AT 100ML. WITH ABDOMINAL DRESSING DRY AND INTACT. PATIENT WITH FAMILY AT BEDSIDE. SAFETY ENSURED WITH BED AT LOWEST POSITION AND LOCKED, SIDERAILS RAISED FOR SAFETY. CALL LIGHT AND BEDSIDE TABLE WITHIN REACH AT ALL TIMES. NOT IN DISTRESS. ENDORSED TO NEXT SHIFT FOR CONTINUITY OF CARE.
--- NOTE | 2020-08-27 19:55 | NUR ---
RN NOTES RECEIVED PATIENT IN BED, ALERT/ORIENTED X4, ROOM AIR, NO COMPLAIN OF PAIN, CLEAR LIQUID DIET, HX GI BLEED, S/P EXPLORATORY LAP & HEMICOLECTOMY, ABDOMINAL DRESSING INTACT, ASSISTED TO SIT ON EDGE OF BED, FAMILY AT THE BEDSIDE, WILL CONTINUE TO MONITOR.
[2020-08-27 20:00] VITALS: BP 149/88
[2020-08-27 20:03] VITALS: BP 149/88
[2020-08-27] MEDS: ATORVASTATIN 40 MG TABLET PO SCH (21:35)
[2020-08-28] VITALS: BP 147/83
[2020-08-28 00:19] VITALS: BP 147/83
[2020-08-28 04:00] VITALS: BP 127/79
[2020-08-28] MEDS: METOCLOPRAMIDE HCL 10 MG/2 ML VIAL IV SCH ×3 (05:49→19:11)
--- NOTE | 2020-08-28 06:50 | NUR ---
RN NOTES ALERT/ORIENTED X4, ON 2LPM VIA NC, WITH SOB, DENIES PAIN AT THIS TIME, ABDOMINAL DRESSING CLEAN, DRY AND INTACT, AMBULATES WITH FWW, WATERY BM, GREEN, URINE IS TEA COLORED, IVF AT 100 ML/HR, REMAINED ON CLEAR LIQUID DIET, NO N/V, REGLAN SCHEDULED, MONITOR HGB, IF HGB < 8, NOTIFY MD, PT EVAL POST OP, CARDIO F/U, ENCOURAGE AMBULATION.
[2020-08-28 07:18] LABS: BASOPHILS % (AUTO) 0.3 % (0.0-2.0); EOSINOPHILS % (AUTO) 1.4 % (0.0-6.0); HEMATOCRIT 36 % (39-51); HEMOGLOBIN 11.1 g/dL (13.5-17.5); LYMPHOCYTES # (AUTO) 1.2 K/uL (0.8-4.8); LYMPHOCYTES % (AUTO) 13.8 % (20.0-44.0); MEAN CORPUSCULAR HGB CONC 31 g/dl (31.0-36.0); MEAN CORPUSCULAR VOLUME 70 fL (80-96); MONOCYTES # (AUTO) 0.5 K/uL (0.1-1.30); MONOCYTES % (AUTO) 6.4 % (2.0-12.0); NEUTROPHILS # (AUTO) 6.7 K/uL (1.8-8.9); NEUTROPHILS % (AUTO) 78.1 % (43.0-81.0); PLATELET COUNT (AUTO) 168 K/uL (150-450); RED BLOOD CELL COUNT(AUTO) 5.12 MIL/uL (4.5-6.0); WHITE BLOOD COUNT (AUTO) 8.5 K/uL (4.3-11.0)
--- NOTE | 2020-08-28 07:25 | NUR ---
PASTRY COOK APPRENTICE OPENING NOTES PATIENT ALERT AND ORIENTED X 4 WITH NO SIGNS OF DISTRESS. PATIENT WITH EVEN AND UNLABORED BREATHING WITH NO SIGNS OF RESPIRATORY DISTRESS ON ROOM AIR. PATIENT WITH LEFT AC G20, WITH IVF OF D5 1/2 NS WITH 20 MEQ KCL RUNNING AT 100ML/HR. PATIENT WITH SIERRA CATHETER TO URINE BAG, DRAINING WELL. WITH RIGHT ABDOMINAL DRESSING EXTENDING TO THE MIDDLE, DRY AND INTACT. COMFORT MEASURES PROVIDED. SAFETY MEASURES ENSURED, BED LOCKED AND AT LOWEST POSITION, SIDE RAILS RAISED FOR SAFETY. CALL LIGHT AND BEDSIDE TABLE WITHIN REACH AT ALL TIMES. WILL CONTINUE TO MONITOR PATIENT.
[2020-08-28 07:30] LABS: CALCIUM, SERUM 8.2 mg/dL (8.5-10.1); POTASSIUM 3.4 mmol/L (3.5-5.1)
[2020-08-28 08:00] VITALS: BP 136/74
[2020-08-28] MEDS: PANTOPRAZOLE 40 MG VIAL IV SCH ×2 (08:29→21:52)
[2020-08-28] MEDS: BUMETANIDE (1 MG) 1 MG TABLET PO SCH (08:29)
[2020-08-28] MEDS: CHOLECALCIFEROL 1,000 UNIT TABLET (VIT D3) PO SCH (08:30)
[2020-08-28] MEDS: METOPROLOL TARTRATE 25 MG TABLET PO SCH (08:30)
[2020-08-28] MEDS ORDERED: POTASSIUM CHLORIDE 20 MEQ TAB.PRT.SR PO ONE (10:00)
[2020-08-28] MEDS: SOD FERRIC GLUC 125 MG in IV NS 0.9% 100 ML IV SCH (14:41)
[2020-08-28 16:39] VITALS: BP 132/72
--- NOTE | 2020-08-28 19:00 | NUR ---
SIGNS SALES REPRESENTATIVE CLOSING NOTES PATIENT ALERT AND ORIENTED X4 WITH NO SIGNS OF DISTRESS. PATIENT WITH EVEN AND UNLABORED BREATHING WITH NO SIGNS OF RESPIRATORY DISTRESS ON ROOM AIR SATURATING AT 98%. PATIENT WITH LEFT AC G20 WITH IVF OF D5 1/2 NS WITH 20MEQ KCL RUNNING AT 100ML. WITH ABDOMINAL DRESSING DRY AND INTACT. SAFETY ENSURED WITH BED AT LOWEST POSITION AND LOCKED, SIDERAILS RAISED FOR SAFETY. CALL LIGHT AND BEDSIDE TABLE WITHIN REACH AT ALL TIMES. NOT IN DISTRESS. ENDORSED TO NEXT SHIFT FOR CONTINUITY OF CARE.
--- NOTE | 2020-08-28 19:00 | NUR ---
MS RN OPENING NOTES RECEIVED PT IN BED PATIENT A/O X 4 WITH NO SIGNS OF RESPIRATORY DISTRESS. PATIENT WITH EVEN AND UNLABORED BREATHING ON ROOM AIR. PATIENT WITH LEFT AC G20, WITH IVF OF D5 1/2 NS WITH 20 MEQ KCL RUNNING AT 100ML/HR. PATIENT WITH SIRERA CATHETER TO URINE BAG, DRAINING WELL. WITH RIGHT ABDOMINAL DRESSING EXTENDING TO THE MIDDLE, DRY AND INTACT. COMFORT MEASURES PROVIDED. SAFETY MEASURES ENSURED, BED LOCKED AND AT LOWEST POSITION, SIDE RAILS RAISED FOR SAFETY. CALL LIGHT AND BEDSIDE TABLE WITHIN REACH AT ALL TIMES. WILL CONTINUE TO MONITOR PATIENT.
[2020-08-28 20:00] VITALS: BP 133/69
[2020-08-28] MEDS: ATORVASTATIN 40 MG TABLET PO SCH (21:52)
[2020-08-29] MEDS: METOCLOPRAMIDE HCL 10 MG/2 ML VIAL IV SCH ×3 (00:47→12:37)
--- NOTE | 2020-08-29 05:00 | NUR ---
FREQUENT WATERY BOWEL MOVEMENT.
--- NOTE | 2020-08-29 06:00 | NUR ---
MS RN CLOSING NOTE PT AWAKE IN BED, ABLE TO RESPOND TO LIGHT STIMULUS. PT NOTED ON RA, NO SOB NOTED. NO S/S OF RESPIRATORY DISTRESS. PT IS ON BED REST. NO C/O PAIN AT THIS TIME. IV ACCESS INTACT, PATENT AND FLUSHING WELL. BED IN LOW POSITION, CALL LIGHTS WITHIN REACH, KEPT CLEAN AND DRY. WOUND CARE PROVIDED AND PICTURES TAKEN. ENDORSE TO DAY SHIFT.
[2020-08-29 06:39] LABS: BASOPHILS % (AUTO) 0.5 % (0.0-2.0); EOSINOPHILS % (AUTO) 3.1 % (0.0-6.0); HEMATOCRIT 33 % (39-51); HEMOGLOBIN 10.2 g/dL (13.5-17.5); LYMPHOCYTES # (AUTO) 0.9 K/uL (0.8-4.8); LYMPHOCYTES % (AUTO) 15.2 % (20.0-44.0); MEAN CORPUSCULAR HGB CONC 31 g/dl (31.0-36.0); MEAN CORPUSCULAR VOLUME 70 fL (80-96); MONOCYTES # (AUTO) 0.4 K/uL (0.1-1.30); MONOCYTES % (AUTO) 7.9 % (2.0-12.0); NEUTROPHILS # (AUTO) 4.1 K/uL (1.8-8.9); NEUTROPHILS % (AUTO) 73.3 % (43.0-81.0); PLATELET COUNT (AUTO) 159 K/uL (150-450); RED BLOOD CELL COUNT(AUTO) 4.63 MIL/uL (4.5-6.0); WHITE BLOOD COUNT (AUTO) 5.6 K/uL (4.3-11.0)
[2020-08-29 07:24] LABS: CALCIUM, SERUM 8.2 mg/dL (8.5-10.1); CREATININE 0.9 mg/dL (0.6-1.3); PHOSPHORUS 2.8 mg/dL (2.5-4.9); POTASSIUM 3.3 mmol/L (3.5-5.1)
--- NOTE | 2020-08-29 08:00 | NUR ---
m/s english teacher: md visit seen by dr. schuster at this time.
[2020-08-29] MEDS: BUMETANIDE (1 MG) 1 MG TABLET PO SCH (08:31)
[2020-08-29] MEDS: METOPROLOL TARTRATE 25 MG TABLET PO SCH (08:31)
[2020-08-29] MEDS: CHOLECALCIFEROL 1,000 UNIT TABLET (VIT D3) PO SCH (08:31)
[2020-08-29] MEDS: PANTOPRAZOLE 40 MG VIAL IV SCH (08:39)
[2020-08-29 09:18] VITALS: BP 155/92
--- NOTE | 2020-08-29 09:26 | NUR ---
m/s interventional radiology technologist: cardio f/u seen by dr. dumont with new orders. orders acknowledged.
--- NOTE | 2020-08-29 10:00 | NUR ---
m/s content director: notes received discharge order to home from dr. schuster. pt aware and family to pick him up in the afternoon.
[2020-08-29] MEDS: POTASSIUM CHLORIDE 20 MEQ TAB.PRT.SR PO SCH ×3 (10:08→12:20)
--- NOTE | 2020-08-29 12:00 | NUR ---
m/s solar energy specialist: notes having lunch. no c/o pain or any discomfort. daughter to picket [employer] pt.
--- NOTE | 2020-08-29 13:45 | NUR ---
m/s senior librarian: notes daughter here to greens picker pt. discharge instructions given to pt with daughter listening. pt and daughter verbalized understanding and will follow up with dr. craig in one to two weeks for helga removal. h/l removed with tip intact.
--- NOTE | 2020-08-29 14:00 | NUR ---
m/s improvement rn: discharge discharge home in stable condition accompanied by daughter via private car with all d'c papers and belongings.
[2020-08-30] MEDS ORDERED: PANTOPRAZOLE 40 MG TABLET.DR PO SCH (07:30)
== END 2020-08-29 14:00 | disposition home or self-care (01) | DRG 329 ==
LOC: ER 19:58 → TELE 22:03 → MED 08-28 08:47
PROVIDERS: ADMIT Student in an Organized Health Care Education/Training Program; ATTEND Internal Medicine
PROC: 30233N1 Transfusion of Nonautologous Red Blood Cells into Peripheral Vein, Percutaneous Approach (ICD-10-PCS; 2020-08-22)
PROC: 0DBF8ZX Excision of Right Large Intestine, Via Natural or Artificial Opening Endoscopic, Diagnostic (ICD-10-PCS; principal; 2020-08-25)
PROC: 0DBN8ZZ Excision of Sigmoid Colon, Via Natural or Artificial Opening Endoscopic (ICD-10-PCS; 2020-08-25)
PROC: 0DBL8ZZ Excision of Transverse Colon, Via Natural or Artificial Opening Endoscopic (ICD-10-PCS; 2020-08-25)
PROC: 0DTF0ZZ Resection of Right Large Intestine, Open Approach (ICD-10-PCS; 2020-08-26)
DX: C18.9 Malignant neoplasm of colon, unspecified (principal); I21.A1 Myocardial infarction type 2; I50.33 Acute on chronic diastolic (congestive) heart failure; E44.1 Mild protein-calorie malnutrition; K63.5 Polyp of colon; K63.89 Other specified diseases of intestine; E86.0 Dehydration; D64.9 Anemia, unspecified; E87.6 Hypokalemia; Z20.822 Contact with and (suspected) exposure to COVID-19; I48.91 Unspecified atrial fibrillation; I11.0 Hypertensive heart disease with heart failure; Z68.32 Body mass index [BMI] 32.0-32.9, adult; Z86.73 Personal history of transient ischemic attack (TIA), and cerebral infarction without residual deficits; D50.9 Iron deficiency anemia, unspecified; E78.5 Hyperlipidemia, unspecified; G93.89 Other specified disorders of brain; K21.9 Gastro-esophageal reflux disease without esophagitis; R79.89 Other specified abnormal findings of blood chemistry; Z95.2 Presence of prosthetic heart valve; E66.9 Obesity, unspecified; K59.00 Constipation, unspecified; N28.1 Cyst of kidney, acquired; Z79.82 Long term (current) use of aspirin; Z95.1 Presence of aortocoronary bypass graft
CPT/HCPCS: 36415; 70450-TC; 71045-TC; 71270-TC; 74018; 80048-TC; 80053-TC; 80061-TC; 80076-TC; 82272-TC; 82378; 82728-TC; 83540-TC; 83690-TC; 83735-TC; 84100-TC; 84443-TC; 84484-TC; 85025-TC; 85730-TC; 86850-TC; 87081-TC; 88305-TC; 93307-TC; 97112-TC; 97116-TC; 97530-TC; A4216; A6253; C9113; C9803; G0378; J0330; J0690; J1100; J1170; J1940; J2270; J2704; J2765; J2916; J3010; J3480; J3490; J7030; J7040; J7050; J7060; P9016; Q9967; Q9968

== ENCOUNTER 2020-09-04 20:48 | Emergency (ER) | payer MEDICARE, OTHER ==
[~2020-09-04] VITALS: Ht 172.7 cm; Wt 95.7 kg
[~2020-09-04 20:48] MED LIST: ASPI-1420 PO; BUME0.5T5 PO; CHOL200010 PO; LORA10TA7 PO; METO25TA6 PO; PANT40TA49 PO; ROSU20TA32 PO
--- NOTE | 2020-09-04 21:15 | NUR ---
pt bibdaughter c/o surgical site stitches bleeding since 814. Pt aaox4 breathing evenly and unlabored. 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 pt attached to monitor and pox. Pt given blanket and call light within reach
--- NOTE | 2020-09-04 22:15 | NUR ---
lab at bedside
[2020-09-04 22:21] LABS: BASOPHILS % (AUTO) 0.6 % (0.0-2.0); HEMATOCRIT 38 % (39-51); HEMOGLOBIN 11.9 g/dL (13.5-17.5); LYMPHOCYTES # (AUTO) 1.3 K/uL (0.8-4.8); LYMPHOCYTES % (AUTO) 25.6 % (20.0-44.0); MEAN CORPUSCULAR HGB CONC 31 g/dl (31.0-36.0); MEAN CORPUSCULAR VOLUME 72 fL (80-96); MONOCYTES # (AUTO) 0.5 K/uL (0.1-1.30); NEUTROPHILS # (AUTO) 3.1 K/uL (1.8-8.9); NEUTROPHILS % (AUTO) 59.8 % (43.0-81.0); PLATELET COUNT (AUTO) 208 K/uL (150-450); RED BLOOD CELL COUNT(AUTO) 5.33 MIL/uL (4.5-6.0); WHITE BLOOD COUNT (AUTO) 5.2 K/uL (4.3-11.0)
[2020-09-04 22:34] LABS: CALCIUM, SERUM 9.1 mg/dL (8.5-10.1); POTASSIUM 4.6 mmol/L (3.5-5.1)
[2020-09-04 22:39] LABS: ALBUMIN 3.5 g/dL (3.4-5.0); BILIRUBIN,DIRECT 0.2 mg/dL (0.0-0.2); BILIRUBIN,TOTAL 0.6 mg/dL (0.2-1.0); TOTAL PROTEIN, SERUM 8.1 g/dL (6.4-8.2)
[2020-09-04 23:05] LABS: BAND % (MANUAL) 3 % (0.0-5.0); BASOPHILS % (MANUAL) 0 % (0.0-2.0); EOSINOPHILS % (MANUAL) 0 % (0-4); LYMPHOCYTES % (MANUAL) 26 % (16-48); MONOCYTES % (MANUAL) 11 % (0-11.0)
[2020-09-04 23:06] LABS: NEUTROPHILS % (MANUAL) 60 (42-76)
--- NOTE | 2020-09-04 23:16 | NUR ---
called shankar to have images read. Being read now
--- NOTE | 2020-09-05 00:15 | NUR ---
[facility] at bedside for wound care
--- NOTE | 2020-09-05 00:17 | NUR ---
Patient discharged to home in stable condition. Written and verbal after care instructions given. Patient verbalizes understanding of instruction. pt ambulatory with a steady gait
--- NOTE | 2020-09-05 00:17 | NUR ---
Sammy [place] in [facility] - 09/05/20 at 0021 by KURTIS Patient discharged to home in stable condition. Written and verbal after care instructions given. Patient verbalizes understanding of instruction.
[2020-09-05 00:23] VITALS: BP 119/80
== END 2020-09-05 00:17 | disposition home or self-care (01) ==
LOC: ER 20:50
DX: K91.873 Postprocedural seroma of a digestive system organ or structure following other procedure (principal); I10 Essential (primary) hypertension; Z86.73 Personal history of transient ischemic attack (TIA), and cerebral infarction without residual deficits; Z79.899 Other long term (current) drug therapy; Z79.82 Long term (current) use of aspirin
CPT/HCPCS: 36415; 80048-TC; 80076-TC; 83690-TC; 85025-TC; 85730-TC